=== PATIENT | male | born 1975 | race Caucasian/White ===

== ENCOUNTER 2023-08-31 15:09 | Emergency (ER) | payer SELFPAY ==
[2023-08-31 15:14] VITALS: BP 127/86; PULSE 75; TEMP 36.7; O2SAT 99; BMI 27.3
--- NOTE | 2023-08-31 15:37 | ED_ITS ---
HPI HPI - General Adult General Chief complaint: Nausea/Vomiting/Diarrhea Stated complaint: FLU SYMPTOMS LAST FEW DAYS Time Seen by Provider: 08/31/23 15:12 Source: patient Mode of arrival: walk-in Limitations: no limitations History of Present Illness HPI narrative: 48-year-old male to the emergency room chief complaint of nausea, vomiting, diarrhea that began two days ago. He reports he contracted from his nephews. He denies any fevers. He denies any chest pain or shortness of breath. He denies any abdominal pain. He reports he has been working the last two days with symptoms however today he can just keep up. Related Data Previous Rx's ?Medication ?Instructions ?Recorded dicyclomine 10 mg capsule 10 mg PO QID PRN abdominal pain 08/31/23 #12 caps ondansetron 4 mg disintegrating 4 mg PO Q8H PRN nausea and 08/31/23 tablet vomiting 4 days #16 tabs Allergies Allergy/AdvReac Type Severity Reaction Status Date / Time Sulfa (Sulfonamide AdvReac Unknown Unknown Verified 08/31/23 15:19 Antibiotics) Opioid HPI Opioid Management Most Recent Opioid Data: No Data to Display Review of Systems ROS Status of ROS 10 or more systems reviewed and unremark able except as noted in history and below Exam Narrative Exam Narrative: VITALS: I have reviewed the triage vital signs. GENERAL: Well developed, well appearing adult in no acute distress. NEURO: Alert and oriented. Moves all extremities. Face is symmetric and expressive. EYES: PERRL. No scleral icterus or conjunctival injection. No discharge. HENT: Normocephalic, atraumatic. Hearing is grossly intact. Nares grossly patent and without discharge. Mucous membranes moist. NECK: No JVD. Patient moves neck without restriction. CARDIO: Rhythm regular. Normal rate. No murmur, rub, or gallop. Pulses equal bilaterally in the upper and lower extremity. No lower extremity edema. PULM: Lungs clear to auscultation in all lemons. No wheezes, rales, or rhonchi. No conversational dyspnea. No splinting, stridor, or accessory muscle use. GI/: Abdomen is soft and non-tender. Normoactive bowel sounds. EXTREMITIES: Symmetric muscle bulk. No joint swelling. No clubbing, cyanosis, or deformity. SKIN: Warm and dry. Normal turgor. No rash or lesions appreciated. PSYCH: Mood, affect, and interaction is appropriate to the setting. Constitutional Vital Signs, click to edit/add: Last Vital Signs Temp 98.0 F 08/31/23 15:14 Pulse 75 08/31/23 15:14 Resp 16 08/31/23 15:14 BP 127/86 08/31/23 15:14 Pulse Ox 99 08/31/23 15:14 Course Vital Signs Vital signs: Vital Signs Temperature 98.0 F 08/31/23 15:14 Pulse Rate 75 08/31/23 15:14 Respiratory Rate 16 08/31/23 15:14 Blood Pressure 127/86 08/31/23 15:14 Pulse Oximetry 99 08/31/23 15:14 Temperature 98.0 F 08/31/23 15:14 Pulse Rate 75 08/31/23 15:14 Respiratory Rate 16 08/31/23 15:14 Blood Pressure 127/86 08/31/23 15:14 Pulse Oximetry 99 08/31/23 15:14 Medical Decision Making [facility] Narrative Medical decision making narrative: 48 y/o male to the emergency department she complained of nausea, vomiting, diarrhea that started suddenly two days ago. His abdominal examination is benign. His vitals are stable. He is well-appearing and in no distress. I offered the patient IV, fluids, Zofran, basic labs and he declined. His concerns about cost. He is requesting a work note and prescription for medications I think might help him. I believe this plan is reasonable. He is given a work note, prescription for Zofran and Bentyl. Instructions continue hydration at home. Return options were discussed. All questions were answered. The patient was discharged home. Medical Records Medical records reviewed: Yes I reviewed the patient's medical records Discharge Plan Discharge Stand Alone Forms: Portal Instructions Chief Complaint: Nausea/Vomiting/Diarrhea Clinical Impression: Gastroenteritis Patient Disposition: Home, Self-Care Time of Disposition Decision: 15:24 Mode of Transportation: Private Vehicle Prescriptions / Home Meds: New ondansetron 4 mg tablet,disintegrating 4 mg PO Q8H PRN (Reason: nausea and vomiting) 4 Days Qty: 16 0RF dicyclomine 10 mg capsule 10 mg PO QID PRN (Reason: abdominal pain) Qty: 12 0RF Print Language: [place] Instructions: Gastroenteritis (ED) Referrals: Dimitris Powers MD [Physician] - 1 week
== END 2023-08-31 15:41 | disposition home or self-care (01) ==
LOC: ER 15:32
PROVIDERS: Emergency Provider Student in an Organized Health Care Education/Training Program
DX: K52.9 Noninfective gastroenteritis and colitis, unspecified (principal)
CPT/HCPCS: 99283